=== PATIENT | male | born 1945 | race Caucasian/White ===

== ENCOUNTER 2017-01-04 03:47 | Observation (INO) | payer OTHER ==
[~2017-01-04] VITALS: Ht 171.4 cm; Wt 79.4 kg
[~2017-01-04 03:47] MED LIST: ASPIRIN325 M2 PO; ATORVASTATIN CA20 M1 PO; COQ1050 MG PO; CUPRIMINE250 MG PO; EVOXAC PO; LEVOTHYROXINE112 MCG PO; MELOXICAM15 M1 PO; N-ACETYL-L-CYS600 M1 PO; PROPECIA1 MG PO; VIAGRA100 M1 PO; VITAMIN B-121000 MC3 PO; VITAMIN D1000 UNI1 PO
--- NOTE | 2017-01-04 15:35 | Admission Core Measures ---
Admission Meds I reviewed the following Meds: Current Medications Sig/Beni Start time Last Medication Dose Stop Time Status Admin Acetaminophen 975 MG ONCE 01/04 0000 NR (Tylenol) 01/04 2359 Cefazolin Sodium 2,000 MG ONCE 01/04 0000 CAN (Kefzol-Ancef Inj) 01/04 2359 Acute Coronary Syndrome Inclusion Criteria ACS Diagnosis No Inpatient Core Measures LDL Reminder: If No, please order W/I first 24hr of stay Congestive Heart Failure Inclusion Criteria CHF Diagnosis No Cerebrovascular accident Inclusion Criteria CVA/TIA Diagnosis No Inpatient Core Measures Bedside Swallow Eval Reminder: If BSE failed, place ST order Antithrombotic Reminder: Order Antithrombotic Medication by end of day 2 Antithrombotic Reminder: Document Reason Antithrombotic Not ordered by end of day 2 AFIB/Flutter Reminder: If Present, add to problem list AFIB/Flutter Reminder: Order Anticoag Medication for pts with AFIB/Flutter Atherosclerosis Reminder: If Present, add to problem list LDL Reminder: If No, please order W/I first 24hr of stay PT Order Reminder: If No, please order Venous thromboembolism Inpatient Core Measures VTE Risk Factors: Age > 40, Surgery [facility] prophylaxis d/t No contraindications No VTE Pharm Prophylaxis d/t No contraindications Inclusion Criteria - Per Current guidelines, there needs to be overlap - treatment for the first 5 days of Warfarin therapy. - Parenteral Anticoagulation (IV or SC) needs to be - given along with Warfarin therapy. VTE Diagnosis No VTE Type NONE VTE Confirmed by (Test) NONE Problem List As ranked by this Provider includes Assessment & Plan 1. Rupture of left quadriceps tendon HOME MEDS Home Med List Aspirin (Aspirin*) 325 MG TABLET 1 TAB PO DAILY heart health (Reported) Atorvastatin Calcium 20 MG TABLET 1 TAB PO DAILY chol (Reported) Cevimeline Hydrochloride Hemih (Evoxac) 30 MG CAPSULE 30 PO D unknown ( Reported) Cholecalciferol (Vitamin D3) (Vitamin D) 1,000 UNIT CAPSULE 1 PO D supp ( Reported) Cyanocobalamin (Vitamin B-12) 1,000 MCG TABLET 1 TAB PO DAILY supp (Reported) Finasteride (Propecia) 1 MG TABLET 1 TAB PO DAILY unknown (Reported) Levothyroxine Sodium 112 MCG TABLET 1 TAB PO DAILY thyroid health (Reported) Meloxicam 15 MG TABLET 1 TAB PO DAILY pain (Reported) Penicillamine (Cuprimine) 250 MG CAPSULE 250 PO D unknown (Reported) Sildenafil Citrate (Viagra) 100 MG TABLET 1 TAB PO DAILY NEEDED erectile dysfunction (Reported) Ubidecarenone (Coq10) 50 MG TAB.CHEW 10 PO D supp (Reported)
--- NOTE | 2017-01-04 15:36 | Discharge Summary ---
Visit Information Visit Dates Admission Date: 01/04/17 Discharge Date: 01/05/2017 Addendum Addendum CANCELLATION OF OBSERVATION ORDER WAS MADE IN ERROR, PATIENT WAS PLACED IN OBSERVATION ON 01/04/2017. Hospital Course Course Attending Physician: HIEU RAIN MD Primary Care Physician: MALLORY KIMBALL MD Hospital Course: Patient admitted to floor following procedure below. Patient ambulated with PT upon arrival to the floor. Patient continued to progress well. Upon discharge patient is afebrile, tolerating diet, pain controlled, ambulating well with rolling walker and PT. Complications: None Allergies: Coded Allergies: Penicillins (per patient breathing difficulty in high doses 01/03/17) oxycodone (nausea 01/03/17) quinine (dizzyness 01/03/17) Uncoded Allergies: sodium bisulfate (unknown 01/03/17) Significant Procedures: 01/04/2017 repair of left quadriceps tendon Disposition Summary Disposition Principal Diagnosis: Left quadriceps tendon rupture Additional Diagnosis: None Discharge Disposition: home health services Discharge Instructions General Discharge Information Code Status: Full Code Patient's Diet: Resume normal diet Patient's Activity: WBAT, CRUTCHES FOR SUPPORT Follow-Up Instructions/Appts: Call office to schedule/confirm appointment Medications at Discharge Discharge Medications: Stop taking the following medications: Aspirin (Aspirin*) 325 MG TABLET ORAL DAILY Meloxicam (Meloxicam) 15 MG TABLET ORAL DAILY Continue taking these medications: Atorvastatin Calcium (Atorvastatin Calcium) 20 MG TABLET 1 Tablet ORAL DAILY Comments: NOT GIVEN IN HOSPITAL Ubidecarenone (Coq10) 50 MG TAB.CHEW 10 ORAL Every Day Comments: NOT GIVEN AT HOSPITAL Penicillamine (Cuprimine) 250 MG CAPSULE 250 ORAL Every Day Comments: 2 capsules NOT GIVEN AT HOSPITAL Cevimeline Hydrochloride Hemih (Evoxac) 30 MG CAPSULE 30 ORAL Every Day Comments: NOT GIVEN AT HOSPITAL Finasteride (Propecia) 1 MG TABLET 1 Tablet ORAL DAILY Comments: Last Taken: 01/05/17 Time: 1000 AM Levothyroxine Sodium (Levothyroxine Sodium) 112 MCG TABLET 1 Tablet ORAL DAILY Comments: Last Taken: 01/05/17 Time: 0630 AM Sildenafil Citrate (Viagra) 100 MG TABLET 1 Tablet ORAL DAILY NEEDED Instructions: 1 hour before sexual activity Comments: NOT GIVEN AT HOSPITAL Cyanocobalamin (Vitamin B-12) 1,000 MCG TABLET 1 Tablet ORAL DAILY Comments: NOT GIVEN AT HOSPITAL Cholecalciferol (Vitamin D3) (Vitamin D) 1,000 UNIT CAPSULE 1 ORAL Every Day Comments: NOT GIVEN AT HOSPITAL Start taking the following new medications: Hydromorphone HCl (Dilaudid) 2 MG TABLET 1-2 Tablet ORAL Q3-4H as needed for PAIN Qty = 48 No Refills Comments: Last Taken: 01/05/17 Time: 1230 PM - 2 TABS Docusate Sodium (Colace) 100 MG CAPSULE 1 Capsule ORAL TWICE DAILY as needed for CONSTIPATION Qty = 30 No Refills Comments: Last Taken: 01/05/17 Time: 1030 AM Polyethylene Glycol 3350 (Miralax) 17 GRAM POWD.PACK 1 Packet ORAL DAILY as needed for CONSTIPATION Qty = 14 No Refills Instructions: dissolve in water Comments: NOT GIVEN AT HOSPITAL Apixaban (Eliquis) 2.5 MG TABLET 1 Tablet ORAL TWICE DAILY Qty = 42 No Refills Comments: Last Taken: 01/05/17 Time: 1030 AM Copies To: MALLORY KIMBALL MD
[2017-01-04] MEDS ORDERED: ELIQUIS2.5 M1 PO (15:47)
[2017-01-04] MEDS ORDERED: MIRALAX17 G1 PO (15:47)
[2017-01-04] MEDS ORDERED: DILAUDID2 M1 PO (15:47)
[2017-01-04] MEDS ORDERED: COLACE100 M1 PO (15:47)
--- NOTE | 2017-01-04 15:50 | Patient Discharge Instructions ---
Discharge Instructions General Discharge Information You were seen/treated for: LEFT QUADRICEPS TENDON RUPTURE You had these procedures: 01/04/17 left quadricep tendon repair Watch for these problems: Redness, swelling, fever, signs of infection. Uncontrolled pain, Excessive bleeding. Unable to bear weight. Chest pain, shortness of breath. Do not soak the wound: Yes No bath, but you may shower: Yes Other wound care: Daily dry dressing changes starting post operative day #2. Special Instructions: Knee immobilizer at all times. Crutches as needed for stability. Diet Continue normal diet: Yes Activity Activity Self Limited: Yes Activity Limited to: Weight bear as tolerated Other activity limits: Knee immobilizer at all times. Crutches as needed for stability. Acute Coronary Syndrome Inclusion Criteria At DC or during hospital stay patient has or had the following: ACS DIAGNOSIS No Discharge Core Measures Meds if any: Prescribed or Continued at Discharge Meds if any: NOT Prescribed or Continued at Discharge Congestive Heart Failure Inclusion Criteria At DC or during hospital stay patient has or had the following: CHF DIAGNOSIS No Discharge Core Measures Meds if any: Prescribed or Continued at Discharge Meds if any: NOT Prescribed or Continued at Discharge Cerebrovascular accident Inclusion Criteria At DC or during hospital stay patient has or had the following: CVA/TIA Diagnosis No Discharge Core Measures Meds if any: Prescribed or Continued at Discharge Meds if any: NOT Prescribed or Continued at Discharge Venous thromboembolism Inclusion Criteria VTE Diagnosis No VTE Type NONE VTE Confirmed by (Test) NONE Discharge Core Measures - Per Current guidelines, there needs to be overlap - treatment for the first 5 days of Warfarin therapy. - If discharged on Warfarin prior to 5 days of - overlap therapy, the patient will need to be - assessed for post discharge needs including - *Post discharge parental anticoagulation - *Warfarin and/or parental anticoagulation education - *Follow up date to check INR post discharge At least 5 days overlap therapy as Inpatient No Meds if any: Prescribed or Continued at Discharge Note: Overlap Therapy is Warfarin and Anticoagulant Meds if any: NOT Prescribed or Continued at Discharge
--- NOTE | 2017-01-04 17:24 | Operative Report ---
Operative/Inv Procedure Report Surgery Date: 01/04/17 Name of Procedure: Left quad tendon repair Pre-Operative Diagnosis: Left quad tendon rupture Post-Operative Diagnosis: Same Estimated Blood Loss: less than 50ml Surgeon/Health Informatics Specialist: KOFFI DIAMOND,HIEU Alicia Anesthesia: block Operative/Procedure Note Note: The patient was taken to the operating room and positively identified. After induction of spinal anesthesia and administration of appropriate preoperative antibiotics was positioned supine on the OR table and all bony prominences well- padded. A well-padded pneumatic tourniquet was placed on the left upper thigh. The left lower extremity was then prepped and draped in the usual sterile fashion. A midline incision was made over the left knee and carried down through skin and subcutaneous tissue to the level of the fascia. Meticulous hemostasis was maintained with Bovie cautery. The fascia over the quad tendon was opened and was immediately apparent that the quad tendon was avulsed off the proximal pole of the patella. There was minimal tearing of the medial and lateral retinaculum however. 3 parallel drill holes were made through the patella from proximal to distal. A #5 FiberWire suture was passed through the medial and lateral borders of the quad tendon utilizing a Krakw stitch configuration. The limbs of the suture were then passed through the drill holes utilizing a Hewson suture passer. They were then securely tied. The medial and lateral retinacular tears were repaired using #1 Vicryl suture. The skin was reapproximated with interrupted 2-0 Vicryl and closed with dakotah. A sterile dressing was applied and the tourniquet was deflated. The patient was then placed in a knee immobilizer and brought to the recovery room in satisfactory condition.
[2017-01-04 19:50] VITALS: BP 125/60
--- NOTE | 2017-01-04 22:46 | PN- Orthopedic ---
Subjective Subjective: Postoperative check Patient is now postoperative day #0 status post left quadriceps tendon repair. He is seen on the general medical floor and remains in stable condition. There have been no acute events postoperatively. Patient admits to left knee pain, which she rates 3 out of 10, within expected limits. He ate dinner without difficulty and has voided. Otherwise denies headache, dizziness, chest pain, shortness of breath. Objective Vital Signs and I&Os Vitals: BP 148/80, HR 73, R 20, Sat 97% on RA, temp 98.7 Physical Exam: Gen.: Patient is awake and alert. No acute distress. Cardiac: Regular Pulmonary: Lungs are clear bilaterally. Extremities: The left lower extremity dressing is clean, dry, and intact. The knee immobilizer remains in place. Sensation is intact in the left foot. Strength of dorsiflexion and plantarflexion 4 out of 5. No calf tenderness. Assessment/Plan Assessment/Plan Patient is a 71-year-old male who is now postoperative day #0 status post left quadriceps tendon repair. Remains stable from a surgical standpoint. Plan: -PT consult for mobilization. WBAT with rolling walker. Knee immobilizer to be worn at all times. -Pain control with morphine for now. Po dilaudid when tolerating po. -Advance diet as tolerated. Heplock IV when tolerating adequate po. -Zofran for nausea as needed. -Colace and miralax for bowel regimen. -Eliquis bid for DVT ppx. Alps while in bed as well. -Plan for discharge most likely tomorrow morning. Core Measures/Miscellaneous Venous Thromboembolism VTE Risk Factors: Age > 40, Surgery, Trauma major or lower ext VTE Contraindications: No Contraindications VTE Diagnosis: No VTE Type: NONE VTE Confirmed by (Test): NONE Beta Yashira Is Beta Yashira a Home Med? No Antibiotics Is Patient on Antibiotics? No
[2017-01-04 23:41] VITALS: BP 148/80
--- NOTE | 2017-01-05 00:10 | NUR ---
1939 PATIENT ARRIVED TO FLOOR ALERT AND ORIENTED X 3. VITAL SIGNS STABLE. DENIES CHEST PAIN. + PULSES KNEE IMMBOLIZER IN PLACE. NO DISTRESS NOTED. BED LOW AND LOCKED. CALL LIGHT WITHIN REACH WILL CONTINUE TO MONITOR
[2017-01-05 07:33] VITALS: BP 153/74
--- NOTE | 2017-01-05 07:57 | PN- Orthopedic ---
Subjective Subjective: Patient states that pain was poorly controlled overnight. He is, however, anticipating discharge today. He denies chest pain, shortness of breath and difficulty breathing. He denies nausea and vomitting. Objective Vital Signs and I&Os Vital Signs Date Time Temp Pulse Resp B/P Pulse O2 O2 Flow FiO2 Ox Delivery Rate 01/05 0733 98.5 76 20 153/74 97 Room Air 01/04 2341 98.7 73 20 148/80 97 Room Air 01/04 1950 97.0 78 18 125/60 94 Room Air Intake & Output 01/05 0800 01/05 0000 01/04 1600 01/04 0800 01/04 0000 01/03 1600 Intake Total 1100 400 Output Total 600 725 Balance 500 -325 Intake, IV 600 Intake, Oral 500 400 Number 0 Bowel Movements Output, Urine 600 725 Patient 175 lb 170 lb Weight Physical Exam: General: Alert and oriented x3, no acute distress Cardiac: RRR, s1s2 Pulmonary: CTA bilaterally Abdomen: Non-tender, non-distended Extremities: Moves all extremities, distal sensation intact. Motor 5/5 in plantar and dorsi flexion. Skin warm and well perfused. DP pulses palpable bilaterally. Bilateral calves soft and non-tender Surgical site: L eft knee, s/p quad tendon repair. Full extension, knee immobilizer in place. Dressing dry and intact. Assessment/Plan Assessment/Plan This is a 72 year old male, POD 1, s/p repair quad tendon rupture -Increase frequency of dilaudid from q4 to q3 -D/c iv fluids -DVT ppx: eliquis -OOB, wbat, knee immobilzer -Plan for discharge to home today pending pain control -Will d/w Dr. Bhatt Core Measures/Miscellaneous Venous Thromboembolism VTE Risk Factors: Age > 40, Surgery, Trauma major or lower ext VTE Contraindications: No Contraindications VTE Diagnosis: No VTE Type: NONE VTE Confirmed by (Test): NONE Beta Yashira Is Beta Yashira a Home Med? No Antibiotics Is Patient on Antibiotics? No
[2017-01-05] MEDS ORDERED: DILAUDID2 M1 PO (08:17)
--- NOTE | 2017-01-05 10:36 | NUR ---
NURSING NOTE: PATIENT CLEARED FOR HOME PER PT; D/C PENDING PAIN CONTROL. PATIENT DECLINING HOME HEALTH SERVICES FOR NURSING AND PT, AWARE THAT RAMEZ WRAP CAN BE REMOVED TOMORROW AND DRY GAUZE DRESSING IS TO BE CHANGED DAILY PER PA; PATIENT STATES "I CAN CHANGE THE DRESSING MYSELF." CRUTCHES ORDERED, PATIENT HAS RW AT HOME. CONT TO MONITOR
== END 2017-01-05 14:31 ==
LOC: ENRESERVDT → ENRESERVTM → STS 03:47 → EDSTATUS 07:00 → STS 07:00 → 2NB 15:15 → ENPENDDIS 15:15 → PACUH 15:15 → 2NB 19:25
PROVIDERS: ADMIT Orthopaedic Surgery
DX: S76.112A Strain of left quadriceps muscle, fascia and tendon, initial encounter (principal); X58.XXXA Exposure to other specified factors, initial encounter; Y93.89 Activity, other specified; E03.9 Hypothyroidism, unspecified; E78.5 Hyperlipidemia, unspecified; C91.10 Chronic lymphocytic leukemia of B-cell type not having achieved remission; I25.10 Atherosclerotic heart disease of native coronary artery without angina pectoris; Z95.1 Presence of aortocoronary bypass graft; Z79.82 Long term (current) use of aspirin
CPT/HCPCS: 97116-GP; 97161-GP; 97530-GP; J0690; J1170; J2405; J7042